=== PATIENT | female | born 1965 | race Two or more races ===

== ENCOUNTER 2017-01-28 10:07 | Emergency (ER) | payer MEDICAID ==
[~2017-01-28] VITALS: Ht 170.2 cm; Wt 65.8 kg
[2017-01-28 10:24] VITALS: BP 121/78
[2017-01-28] MEDS ORDERED: Tylenol #3 tab (300mg/30mg) ORAL ONE (10:45)
[2017-01-28] MEDS ORDERED: Norco 5mg/325mg tab ORAL ONE (11:15)
--- NOTE | 2017-01-28 11:18 | Diagnostic Imaging Report ---
Indication: PAIN Technique: 2 views of the right hip Comparison: None Findings: No acute fractures. No dislocations. Joint spaces are preserved Impression: Negative
[2017-01-28] MEDS ORDERED: TRAMADOL HCL50 MG ORAL (11:50)
[2017-01-28 11:55] VITALS: BP 121/78
--- NOTE | 2017-01-28 15:01 | Emergency Room Report ---
History of Present Illness General Chief Complaint: Multiple Trauma/Fall Source: Patient Present Illness HPI 52-year-old female presents ED complaining of right hip pain. States yesterday she mechanical trip and fall. Denies hitting her head or LOC. Patient presents with right hip pain. Probably, 10/14, nonradiating. Stable to bear weight. No other aggravating relieving factors. Denies any other associated symptoms Allergies: Coded Allergies: IBUPROFEN (Verified Allergy, Severe, 01/28/17) nausea PENICILLINS (Verified Allergy, Severe, 01/28/17) weak Patient History Past Medical History: none Past Surgical History: none Pertinent Family History: none Social History: Denies: smoking, alcohol use, drug use Last Menstrual Period: na Now: No Immunizations: UTD Reviewed Nursing Documentation: PMH: Agreed, PSxH: Agreed Nursing Documentation-PMH Past Medical History: No Stated History Review of Systems All Other Systems: negative except mentioned in HPI Physical Exam Vital Signs Date Time Temp Pulse Resp B/P (MAP) Pulse Ox O2 Delivery O2 Flow Rate FiO2 01/28/17 10:24 98.2 99 18 121/78 99 Room Air Sp02 EP Interpretation: reviewed, normal General Appearance: no apparent distress, alert, GCS 15, non-toxic Head: normocephalic Eyes: bilateral eye normal inspection, bilateral eye PERRL ENT: normal ENT inspection Neck: normal inspection Respiratory: normal inspection Cardiovascular #1: normal inspection Gastrointestinal: normal inspection Rectal: deferred Genitourinary: no CVA tenderness Musculoskeletal: normal range of motion, tender - R hip Neurologic: alert, oriented x3, responsive, motor strength/tone normal, sensory intact, speech normal Psychiatric: normal inspection Skin: normal inspection Lymphatic: normal inspection Medical Decision Making Diagnostic Impression: Primary Impression: Contusion, hip Qualified Codes: S70.01XA - Contusion of right hip, initial encounter ER Course Hospital Course 52-year-old F presents to ED complaining of R hip pain s/p trip and fall Differential diagnoses include: Fracture, dislocation, sprain, contusion Clinical course Patient placed on stretcher. After initial history and physical, I ordered pain medications and Xrays of R hip Xrays prelim read shows no acute fracture/dislocation. Diagnosis - hip contusion Stable and discharged to home with prescription for Tylenol #3. apply ice, keep elevated. weight bear as tolerated. Followup with PMD. Return to ED if symptoms recur or worsen Other X-Ray Diagnostic Results Other X-Ray Diagnostic Results : X-Ray ordered: R hip # of Views/Limited Vs Complete: 2 View Indication: Pain EP Interpretation: Yes Interpretation: no dislocation, no soft tissue swelling, no fractures Impression: No acute disease Electronically Signed by: Electronically signed by Luisito Kasper MD Last Vital Signs Date Time Temp Pulse Resp B/P (MAP) Pulse Ox O2 Delivery O2 Flow Rate FiO2 01/28/17 11:55 98.2 72 18 121/78 99 Room Air Status: improved Disposition: HOME, SELF-CARE Condition: Stable Scripts Tramadol Hcl* (ULTRAM*) 50 Mg Tablet 50 MG ORAL Q6H Y for For Pain, #20 TAB 0 Refills Prov: LUISITO KASPER M.D. 01/28/17 Patient Instructions: Hip Pain LUISITO KASPER M.D. Jan 28, 2017 15:01
== END 2017-01-28 11:55 | disposition home or self-care (01) ==
LOC: EMR 11:10
DX: S70.01XA Contusion of right hip, initial encounter (principal); Z88.6 Allergy status to analgesic agent; Z88.0 Allergy status to penicillin; W10.9XXA Fall (on) (from) unspecified stairs and steps, initial encounter; Y92.9 Unspecified place or not applicable
CPT/HCPCS: 99284

== ENCOUNTER 2018-08-14 12:56 | Emergency (ER) | payer MEDICAID ==
[~2018-08-14] VITALS: Ht 167.6 cm; Wt 73.5 kg
[~2018-08-14 12:56] MED LIST: TRAMADOL HCL50 MG ORAL
[2018-08-14 13:17] VITALS: BP 129/89
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
--- NOTE | 2018-08-14 14:11 | Diagnostic Imaging Report ---
Indication: Headache Technique: Contiguous 5 mm thick transaxial imaging of the head obtained in a Siemens Sensation [address] scanner. Soft tissue and bone windows generated. Automatic Exposure Control was utilized. Total Dose length Product (DLP): 1319.[address] Dose Index Volume (CTDIvol): 70.38 mGy Comparison: none Findings: The size and configuration of the cortical sulci, basal cisterns, and ventricles are within normal limits for age. There is no mass effect, midline shift, or edema identified. There is no evidence of acute hemorrhage or abnormal intra-axial or extra-axial fluid collections. The bones and soft tissues are unremarkable. Impression: No mass effect, edema or acute bleed. The CT scanner at [facility] is accredited by the [employer] and the scans are performed using dose optimization techniques as appropriate to a performed exam including Automatic Exposure control.
--- NOTE | 2018-08-14 14:14 | Diagnostic Imaging Report ---
Indication: Neck pain. Technique: Continuous helical imaging of the cervical spine was obtained transaxially from the skull base to the upper thoracic spine. 2-D coronal and sagittal reformatted images were obtained. Automatic Exposure Control was utilized. Total Dose length Product (DLP): 470.[address] Dose Index Volume (CTDIvol): 22.83 mGy Comparison: None Findings: There is no acute fracture or malalignment identified. There is no soft tissue swelling identified. Mild uncovertebral arthritis and narrowing of intervertebral discs demonstrated at C5-6 and C6-7. Mild foraminal stenosis demonstrated. Focal calcification posterior to the C6 vertebra demonstrated involving the posterior longitudinal ligament. There is enlargement of the thyroid gland which is markedly heterogeneous partially visualized on this exam. Impression: No acute injury Degenerative disease at C5-6 and C6-7. Enlarged heterogeneous thyroid gland not well evaluated on this exam. The CT scanner at [facility] is accredited by the [employer] and the scans are performed using dose optimization techniques as appropriate to a performed exam including Automatic Exposure control.
--- NOTE | 2018-08-14 14:15 | Diagnostic Imaging Report ---
Indication: Foot Pain Comparison: None Findings: 3 views of the right foot were obtained. No acute fractures, malalignment, erosions or periostitis are identified. Soft tissues are unremarkable. Impression: No acute findings.
[2018-08-14] MEDS ORDERED: TYLENOL EXTRA500 MG ORAL (15:04)
[2018-08-14] MEDS ORDERED: LIDODERM700 M1 TOPIC (15:04)
[2018-08-14 15:41] VITALS: BP 129/89
== END 2018-08-14 15:40 | disposition home or self-care (01) ==
LOC: EMR 13:30
DX: S90.31XA Contusion of right foot, initial encounter (principal); V43.52XA Car driver injured in collision with other type car in traffic accident, initial encounter; Y92.410 Unspecified street and highway as the place of occurrence of the external cause; M54.2 Cervicalgia; R51 Headache; R41.82 Altered mental status, unspecified; Z88.0 Allergy status to penicillin; Z88.6 Allergy status to analgesic agent
CPT/HCPCS: 70450; 72125; 99284

== ENCOUNTER 2019-07-19 15:48 | Emergency (ER) | payer MEDICAID ==
[~2019-07-19] VITALS: Ht 170.2 cm; Wt 74.8 kg
[~2019-07-19 15:48] MED LIST changes: +LIDODERM700 M1 TOPIC; +TYLENOL EXTRA500 MG ORAL
[2019-07-19 15:50] VITALS: BP 137/66
--- NOTE | 2019-07-19 15:50 | NUR ---
ED Nurse Note: Patient CHITRA [id number] from home c/o OD. Per patient, she took Doon, unk amount for unk reason. Pt appears to be sleepy and drowsy but able to answer questions and able to make needs known. Pt a&ox4. Not in any distress. Afebrile. VSS. ERMD at beside.
--- NOTE | 2019-07-19 16:02 | NUR ---
ED Nurse Note: IV line established. Blood specimen collected and sent to lab.
--- NOTE | 2019-07-19 16:06 | NUR ---
ED Nurse Note: Pt was taken for CT via har[facility], accompanied by a tech.
--- NOTE | 2019-07-19 16:25 | NUR ---
ED Nurse Note: Pt came back from CT, not in any distress.
[2019-07-19 16:26] LABS: BASOPHILS % (AUTO) 2.1 % (0.0-2.0); EOSINOPHILS % (AUTO) 3.9 % (0.0-3.0); HEMOGLOBIN 14.7 G/DL (12.0-16.0); MEAN CORPUSCULAR VOLUME 92 FL (80-99); NEUTROPHILS % (AUTO) 56.1 % (45.0-75.0); PLATELET COUNT 227 K/UL (150-450); RED BLOOD COUNT 4.87 M/UL (4.20-5.40); RED CELL DISTRIBUTION WIDTH 12.9 % (11.6-14.8); WHITE BLOOD COUNT 9.1 K/UL (4.8-10.8)
[2019-07-19 16:30] LABS: ANION GAP 9 mmol/L (5-15); BLOOD UREA NITROGEN 17 mg/dL (7-18); CARBON DIOXIDE 29 MMOL/L (21-32); CHLORIDE 107 MMOL/L (98-107); CREATININE 0.8 MG/DL (0.55-1.30); POTASSIUM 4.5 MMOL/L (3.5-5.1); SODIUM 145 MMOL/L (136-145)
[2019-07-19 16:35] LABS: ALANINE AMINOTRANSFERASE 26 U/L (12-78); ALBUMIN 3.8 G/DL (3.4-5.0); ALBUMIN/GLOBULIN RATIO 1.3 (1.0-2.7); ALKALINE PHOSPHATASE 75 U/L (46-116); ASPARTATE AMINO TRANSFERASE 15 U/L (15-37); BILIRUBIN,TOTAL 0.3 MG/DL (0.2-1.0)
--- NOTE | 2019-07-19 16:35 | NUR ---
ED Nurse Note: Urine specimen collected and sent to lab.
--- NOTE | 2019-07-19 16:40 | Emergency Room Report ---
History of Present Illness General Chief Complaint: Overdose Source: EMS Present Illness HPI 54-year-old female presents ED for possible overdose. Found lethargic today by family. They deny patient takes any drugs. Patient states she took "the wrong kind of [place]". Cannot provide any additional history as to why she took the medication. Denies SI or HI. Is awake but lethargic. Slurring speech. Denies headache. Denies chest pain or shortness of breath. Denies fevers or chills. Denies runny nose or cough or congestion. No other aggravating relieving factors. Denies any other associated symptoms Allergies: Coded Allergies: IBUPROFEN (Verified Allergy, Severe, 01/28/17) nausea PENICILLINS (Verified Allergy, Severe, 01/28/17) weak COVID-19 Screening Contact w/high risk pt: No Recent Travel to affected area: No Experienced COVID-19 symptoms?: No Patient History Past Medical History: none Past Surgical History: none Pertinent Family History: none Social History: Denies: smoking, alcohol use, drug use Now: No Immunizations: UTD Reviewed Nursing Documentation: PMH: Agreed; PSxH: Agreed Nursing Documentation-PMH Past Medical History: No History, Except For Review of Systems All Other Systems: negative except mentioned in HPI Physical Exam Vital Signs Date Time Temp Pulse Resp B/P (MAP) Pulse Ox O2 Delivery O2 Flow Rate FiO2 07/19/19 15:43 97.5 70 19 137/66 (89) 98 Room Air Sp02 EP Interpretation: reviewed, normal General Appearance: no apparent distress, GCS 15, non-toxic, lethargic Head: normocephalic, atraumatic Eyes: bilateral eye normal inspection, bilateral eye PERRL ENT: hearing grossly normal, normal pharynx, no angioedema, normal voice Neck: full range of motion, supple/symm/no masses Respiratory: chest non-tender, lungs clear, normal breath sounds, speaking full sentences Cardiovascular #1: regular rate, rhythm, no edema Cardiovascular #2: 2+ carotid (R), 2+ carotid (L), 2+ radial (R), 2+ radial (L) , 2+ dorsalis pedis (R), 2+ dorsalis pedis (L) Gastrointestinal: normal bowel sounds, non tender, soft, non-distended, no guarding, no rebound Rectal: deferred Genitourinary: normal inspection, no CVA tenderness Musculoskeletal: back normal, normal range of motion, gait/station normal, non- tender Neurologic: motor strength/tone normal, oriented x3, sensory intact, responsive , other - lethargic Psychiatric: other - lethargic Reflexes: 3+ bicep (R), 3+ bicep (L), 3+ tricep (R), 3+ tricep (L), 3+ knee (R) , 3+ knee (L) Skin: no rash Lymphatic: no adenopathy Medical Decision Making Diagnostic Impression: Primary Impression: Drug overdose Qualified Codes: T50.901A - Poisoning by unspecified drugs, medicaments and biological substances, accidental (unintentional), initial encounter ER Course Hospital Course 54-year-old F presents to ED with altered mental status. history of norco use Differential diagnoses include: Psychosis, EtOH, drug abuse Clinical course patient placed on stretcher. On monitoring engineer. After initial history and physical ordered labs, IV fluids, EKG, CT brain. Labs reviewed-electrolytes okay, no leukocytosis, hemoglobin/hematocrit stable, tox panel + for multilple substances CT brain shows no acute pathology Patient observed on monitoring engineer. Vitals stable. Resting comfortably. Protecting airway. Is more alert and oriented. I discussed findings with patient. Patient requested sleeping pills. I declined. Family is here to take patient home. Safe for discharge close outpatient follow-up. I will provide referrals. Also provide prescription for Narcan. i. I feel this is a highly complex case requiring extensive working including EKG/Rhythm strip, Xray/CT/US, Blood/urine lab work, repeat exams while in ED, and administration of strong opiates/narcotics for pain control, admission to hospital or close patient follow up. Diagnosis -drug overdose Stable and discharged to home with Rx Narcan. Followup with PMD. Return to ED if symptoms recur or worsen Labs Test 07/19/19 15:55 07/19/19 16:36 White Blood Count 9.1 K/UL (4.8-10.8) Red Blood Count 4.87 M/UL (4.20-5.40) Hemoglobin 14.7 G/DL (12.0-16.0) Hematocrit 45.0 % (37.0-47.0) Mean Corpuscular Volume 92 FL (80-99) Mean Corpuscular Hemoglobin 30.2 PG (27.0-31.0) Mean Corpuscular Hemoglobin Concent 32.7 G/DL (32.0-36.0) Red Cell Distribution Width 12.9 % (11.6-14.8) Platelet Count 227 K/UL (150-450) Mean Platelet Volume 8.9 FL (6.5-10.1) Neutrophils (%) (Auto) 56.1 % (45.0-75.0) Lymphocytes (%) (Auto) 32.0 % (20.0-45.0) Monocytes (%) (Auto) 6.0 % (1.0-10.0) Eosinophils (%) (Auto) 3.9 % (0.0-3.0) Basophils (%) (Auto) 2.1 % (0.0-2.0) Sodium Level 145 MMOL/L (136-145) Potassium Level 4.5 MMOL/L (3.5-5.1) Chloride Level 107 MMOL/L (98-107) Carbon Dioxide Level 29 MMOL/L (21-32) Anion Gap 9 mmol/L (5-15) Blood Urea Nitrogen 17 mg/dL (7-18) Creatinine 0.8 MG/DL (0.55-1.30) Estimat Glomerular Filtration Rate > 60 mL/min (>60) Glucose Level 91 MG/DL (74-106) Calcium Level 9.0 MG/DL (8.5-10.1) Total Bilirubin 0.3 MG/DL (0.2-1.0) Aspartate Amino Transf (AST/SGOT) 15 U/L (15-37) Alanine Aminotransferase (ALT/SGPT) 26 U/L (12-78) Alkaline Phosphatase 75 U/L (46-116) Total Protein 6.8 G/DL (6.4-8.2) Albumin 3.8 G/DL (3.4-5.0) Globulin 3.0 g/dL Albumin/Globulin Ratio 1.3 (1.0-2.7) Salicylates Level 5.8 ug/mL (2.8-20) Acetaminophen Level < 2 MCG/ML (10-30) Serum Alcohol < 3 mg/dL Urine Opiates Screen Positive (NEGATIVE) Urine Barbiturates Screen Negative (NEGATIVE) Phencyclidine (PCP) Screen Negative (NEGATIVE) Urine Amphetamines Screen Negative (NEGATIVE) Urine Benzodiazepines Screen Positive (NEGATIVE) Urine Cocaine Screen Negative (NEGATIVE) Urine Marijuana (THC) Screen Positive (NEGATIVE) CT/MRI/US Diagnostic Results CT/MRI/US Diagnostic Results : Imaging Test Ordered: CT Head Impression no acute process Last Vital Signs Date Time Temp Pulse Resp B/P (MAP) Pulse Ox O2 Delivery O2 Flow Rate FiO2 07/19/19 15:50 70 19 Room Air 07/19/19 15:50 97.5 137/66 98 Status: improved Disposition: HOME, SELF-CARE Condition: Stable Scripts Naloxone HCl (Narcan) 4 Mg [place] 4 MG NS ONCE for not breathing, #1 SPRAY Prov: Luisito Kasper MD 07/19/19 Referrals: [facility],REFERRING (PCP) Luisito Kasper MD Jul 19, 2019 16:40
--- NOTE | 2019-07-19 16:40 | Diagnostic Imaging Report ---
Indications: Altered mental status and dizziness Technique: Spiral acquisitions obtained through the brain. Angled axial and coronal 5 x 5 mm slices were reconstructed. Total dose length product 965 mGycm. CTDI vol(s) 53 mGy. Dose reduction achieved using automated exposure control Comparison: 08/14/2018 Findings: No acute intracranial hemorrhage or edema. No mass effect nor midline shift. Normal olmstead-white differentiation. Intact calvarium. Normal size ventricles and extra axial CSF spaces. Intact calvarium. The mastoids are clear. The visualized orbits and sinuses are unremarkable. No significant interim change Impression: Negative The CT scanner at [facility] is accredited by the [employer] and the scans are performed using protocols designed to limit radiation exposure to as low as reasonably achievable to attain images of sufficient resolution adequate for diagnostic evaluation.
[2019-07-19] MEDS ORDERED: NARCAN4 MG NS (17:54)
[2019-07-19 18:01] VITALS: BP 121/70
--- NOTE | 2019-07-19 18:01 | NUR ---
ED Nurse Note: Pt cleared by ERMD for discharge. DC instructions/prescription was given and explained to pt and verbalized understanding of teachings. All medical deviecs such as ID band and IV line removed. Pt is AAO x4, ambulatory and left with all personal belongings. Pt was picked up by a family member.
== END 2019-07-19 18:01 | disposition home or self-care (01) ==
LOC: EDBD 15:48 → EMR 16:10
DX: T50.901A Poisoning by unspecified drugs, medicaments and biological substances, accidental (unintentional), initial encounter (principal); X58.XXXA Exposure to other specified factors, initial encounter; Y92.9 Unspecified place or not applicable; Z88.0 Allergy status to penicillin; Z88.6 Allergy status to analgesic agent
CPT/HCPCS: 36415; 70450; 80053; 80307; 85025; 96360; G0480; G0481; J7030; Z7502; 99284